=== PATIENT | female | born 1960 | race Caucasian/White ===

== ENCOUNTER 2017-05-08 12:26 | Emergency (ER) | payer BC, MEDICARE ==
[2017-05-08 12:47] VITALS: BP 141/90
--- NOTE | 2017-05-08 13:28 | UC ---
Complaint Female HPI - HPI Summary HPI Summary: PATIENT HAS ALZHEIMERS, HAS BEEN ITCHING BLADDER AREA FOR TWO WEEKS AFTER URINATION. LAST FEW DAYS HAS HAD CHANGES IN MENTATION . CONCERN FOR UTI; NO FEVER. - History Of Current Complaint Chief Complaint: UCGU Stated Complaint: POSSIBLE UTI Time Seen by Provider: 05/08/17 12:47 Hx Obtained From: Patient, Family/Waterproofer Hx From Patient Unobtainable Due To: Dementia Onset/Duration: Sudden Onset, Gradual Onset, Lasting Weeks, Still Present, Worse Since - 3 DAYS Timing: Intermittent, Lasting Weeks Severity Initially: Moderate Severity Currently: Moderate Character: Dull, Burning Aggravating Factor(s): Urination Associated Signs And Symptoms: Negative: Fever, Back Pain, Vaginal Bleeding/ Discharge, Vaginal Discharge, Nausea, Vomiting(# Of Episodes =), Genital Swelling, Genital Blisters, Retained Foregin Body (Specify) - Risk Factors Ectopic Risk Factor: Negative Ovarian Torsion Risk Factor: Negative - Allergies/Home Medications Allergies/Adverse Reactions: Allergies Allergy/AdvReac Type Severity Reaction Status Date / Time No Known Allergies Allergy Verified 05/08/17 12:47 PMH/Surg Hx/FS Hx/Imm Hx Previously Healthy: Yes - Surgical History Surgical History: Yes Surgery Procedure, Year, and Place: hernia repair - Family History Known Family History: Negative: Renal Disease - Social History Occupation: Employed Full-time Lives: With Family Alcohol Use: None Substance Use Type: None Smoking Status (MU): Former Smoker Review of Systems Constitutional: Negative Skin: Negative Eyes: Negative ENT: Negative Respiratory: Negative Cardiovascular: Negative Gastrointestinal: Negative Genitourinary: Frequency Motor: Negative Neurovascular: Negative Musculoskeletal: Negative Neurological: Negative Psychological: Negative All Other Systems Reviewed And Are Negative: Yes Physical Exam Triage Information Reviewed: Yes Completion Of Physical Exam Limited Due To: Dementia Appearance: Well-Appearing, No Pain Distress, Well-Nourished Vital Signs: Initial Vital Signs Temp 98.9 F 05/08/17 12:42 Pulse 96 05/08/17 12:42 Resp 16 05/08/17 12:42 BP 141/90 05/08/17 12:42 Pulse Ox 100 05/08/17 12:42 Vital Signs Reviewed: Yes Eye Exam: Normal ENT Exam: Normal ENT: Positive: Normal ENT inspection, Hearing grossly normal Dental Exam: Normal Neck exam: Normal Neck: Positive: Supple, Nontender, No Lymphadenopathy Respiratory Exam: Normal Respiratory: Positive: Chest non-tender, Lungs clear, Normal breath sounds, No respiratory distress, No accessory muscle use Cardiovascular Exam: Normal Cardiovascular: Positive: RRR, No Murmur, Pulses Normal, Brisk Capillary Refill Abdominal Exam: Normal Abdomen Description: Positive: Nontender, No Organomegaly Musculoskeletal Exam: Normal Neurological Exam: Normal Psychological: Positive: Normal Response To Family Skin Exam: Normal Complaint Female Dx - Differential Dx/Diagnosis Differential Diagnosis/HQI/PQRI: Urinary Tract Infection Provider Diagnoses: URINARY TRACT INFECTION Discharge - Discharge Plan Condition: Stable Disposition: HOME Prescriptions: Sulfamethox/Trimethoprim DS* [Bactrim DS 800/160 TAB*] 1 tab PO BID #14 tab Patient Education Materials: Urinary Tract Infection in Women (ED) Referrals: Cheryl Angulo MD [Primary Care Provider] -
--- NOTE | 2017-05-09 15:57 | UC ---
Progress - Progress Note Progress Note: call and besure patients sx have resolved---if symptoms continued please get rechecked
== END 2017-05-08 13:20 | disposition home or self-care (01) ==
LOC: UCEAST 12:26
DX: N39.0 Urinary tract infection, site not specified (principal); G30.9 Alzheimer's disease, unspecified; F02.80 Dementia in other diseases classified elsewhere, unspecified severity, without behavioral disturbance, psychotic disturbance, mood disturbance, and anxiety
CPT/HCPCS: 81003; 87077; 87086; 99212; G0463

== ENCOUNTER 2017-05-09 20:15 | Emergency (ER) | payer MEDICARE ==
--- NOTE | 2017-05-09 21:45 | RAD ---
INDICATION: Altered mental status, multiple falls. COMPARISON: Correlation is made with a prior outside MRI of the brain from March 29, 2013. TECHNIQUE: Contiguous axial sections of the brain were obtained from the skull base to the vertex without contrast. FINDINGS: The ventricles, cisterns and sulci are enlarged consistent with diffuse atrophy. No significant focal abnormality or mass effect is seen. There is no evidence for hemorrhage. No significant focal osseous abnormality is seen. The visualized portion of the paranasal sinuses and mastoid air cells appear clear. IMPRESSION: NO EVIDENCE FOR GROSS ACUTE INFARCT, MASS EFFECT OR HEMORRHAGE.
--- NOTE | 2017-05-09 21:49 | RAD ---
INDICATION: Trauma. COMPARISON: There are no prior studies available for comparison. TECHNIQUE: Contiguous axial sections were obtained from the skull base through the T2 vertebra. Images were reconstructed in the sagittal and coronal planes. FINDINGS: The vertebra are in normal alignment. No prevertebral soft tissue swelling or fracture is seen. At the C5-C6 level there is mild posterior uncinate process spurring. This causes mild spinal canal narrowing and mild bilateral neural foraminal narrowing. At the C6-C7 level there is mild posterior uncinate process spurring. No significant spinal canal narrowing is present. There is mild neural foraminal narrowing on the left side. IMPRESSION: 1. NO EVIDENCE FOR FRACTURE OR SUBLUXATION. 2. MILD CERVICAL SPONDYLOSIS.
[2017-05-09 21:54] LABS: Hematocrit 40 % (35-47); Hemoglobin 13.9 g/dl (12.0-16.0); Mean Corpuscular HGB Conc 35 g/dl (31-36); Mean Corpuscular Hemoglobin 32 pg (27-31); Mean Corpuscular Volume 93 fL (80-97); Mean Platelet Volume 8 um3 (7.4-10.4); Red Blood Count 4.34 10^6/ul (4.0-5.4); Red Cell Distribution Width 13 % (10.5-15); White Blood Count 8.3 10^3/ul (3.5-10.8)
--- NOTE | 2017-05-09 22:05 | ED ---
Matty Hand Nikita, scribed for Michele Rogers MD on 05/09/17 at 2115 . Altered Mental Status - HPI Summary HPI Summary: This patient is a 57 year old F BIBA from [facility] to ED for AMS s /p multiple unwitnessed falls earlier today. alf staff had to help pt walk to bed because she was leaning over more than usual. Pt is unable to follow commands and has impaired speech which is not unusual per [facility] staff. alf staff reports bruise on R side of head. Staff reports pt is not on blood thinners. PMHx of stroke w/ L Side weakness and expressive aphasia. - History Of Current Complaint Chief Complaint: EDAltMentalStatus Stated Complaint: FALL Time Seen by Provider: 05/09/17 21:09 Hx Obtained From: Family/Pitching Coach Hx From Patient Unobtainable Due To: Altered Mental Status Onset/Duration: Unknown - Multiple unwitnessed falls, Still Present Aggravating Factor(s): Nothing Associated Signs And Symptoms: Positive: Recent Trauma - multiple unwitnessed falls, leaning over more than usual, unable to follow commands, and has impaired speech which is not unusual per [facility] staff. alf staff reports bruise on R side of head. - Allergies/Home Medications Allergies/Adverse Reactions: Allergies Allergy/AdvReac Type Severity Reaction Status Date / Time No Known Allergies Allergy Verified 05/08/17 12:47 PMH/Surg Hx/FS Hx/Imm Hx Endocrine/Hematology History: Reports: Hx Thyroid Disease Cardiovascular History: Reports: Hx Hypertension - Cancer History Hx Chemotherapy: No Hx Radiation Therapy: No - Surgical History Surgery Procedure, Year, and Place: hernia repair Infectious Disease History: Yes Infectious Disease History: Denies: Hx Clostridium Difficile, Hx Hepatitis, Hx Human Immunodeficiency Virus (HIV), Hx of Known/Suspected MRSA, Hx Shingles, Hx Tuberculosis, Hx Known/ Suspected VRE, Hx Known/Suspected VRSA, History Other Infectious Disease, Traveled Outside the [place] in Last 30 Days - Family History Known Family History: Negative: Renal Disease - Social History Alcohol Use: None Substance Use Type: Reports: None Smoking Status (MU): Former Smoker Review of Systems Positive: Other - Multiple unwitnessed falls, [facility] staff reports pt was leaning over more than usual Positive: Bruising - R side of head Neurological: Other - Unable to follow commands, impaired speech which is not unusual per [facility] staff All Other Systems Reviewed And Are Negative: Yes Physical Exam Triage Information Reviewed: Yes Vital Signs On Initial Exam: Initial Vitals Temp Pulse Resp BP Pulse Ox 98.2 F 78 18 166/100 100 05/09/17 20:24 05/09/17 20:24 05/09/17 20:24 05/09/17 20:24 05/09/17 20:24 Vital Signs Reviewed: Yes Appearance: Positive: Well-Appearing, No Pain Distress Skin: Positive: Warm, Skin Color Reflects Adequate Perfusion, Dry Head/Face: Positive: Other - Small hematoma above L lateral eyebrow Eyes: Positive: Normal ENT: Positive: Normal ENT inspection Neck: Positive: Supple, Tenderness @ - Tenderness to palpation at midline of neck Respiratory/Lung Sounds: Positive: Clear to Auscultation, Breath Sounds Present Cardiovascular: Positive: RRR Abdomen Description: Positive: Nontender, Soft Bowel Sounds: Positive: Present Musculoskeletal: Positive: Normal Neurological: Positive: Normal, Sensory/Motor Intact, Alert, Oriented to Person Place, Time, CN Intact II-III Psychiatric: Positive: Affect/Mood Appropriate Diagnostics - Vital Signs Vital Signs Temp Pulse Resp BP Pulse Ox 05/09/17 20:24 98.2 F 78 18 166/100 100 - Laboratory Lab Results: Lab Results 05/09/17 Range/Units 21:40 WBC 8.3 (3.5-10.8) 10^3/ul RBC 4.34 (4.0-5.4) 10^6/ul Hgb 13.9 (12.0-16.0) g/dl Hct 40 (35-47) % MCV 93 (80-97) fL MCH 32 H (27-31) pg MCHC 35 (31-36) g/dl RDW 13 (10.5-15) % Plt Count 255 (150-450) 10^3/ul MPV 8 (7.4-10.4) um3 Neut % (Auto) 69.6 (38-83) % Lymph % (Auto) 18.3 L (25-47) % [place] % (Auto) 10.5 H (1-9) % Eos % (Auto) 1.0 (0-6) % Baso % (Auto) 0.6 (0-2) % Absolute Neuts (auto) 5.8 (1.5-7.7) 10^3/ul Absolute Lymphs (auto) 1.5 (1.0-4.8) 10^3/ul Absolute Monos (auto) 0.9 H (0-0.8) 10^3/ul Absolute Eos (auto) 0.1 (0-0.6) 10^3/ul Absolute Basos (auto) 0.1 (0-0.2) 10^3/ul Absolute Nucleated RBC 0 10^3/ul Nucleated RBC % 0 Result Diagrams: 05/09/17 21:40 Lab Statement: Any lab studies that have been ordered have been reviewed, and results considered in the medical decision making process. - CT Brain CT Interpretation Completed By: Radiologist - NO EVIDENCE FOR GROSS ACUTE INFARCT, MASS EFFECT OR HEMORRHAGE. ED physician has reviewed this radiology report and agrees. C-spine CT Interpretation Completed By: Radiologist - 1. NO EVIDENCE FOR FRACTURE OR SUBLUXATION. 2. MILD CERVICAL SPONDYLOSIS. ED physician has reviewed this radiology report and agrees. - EKG 2138 Cardiac Rate: NL - 72 BPM EKG Rhythm: Sinus Rhythm ST Segment: Non-Specific - Non-specific T wave flattening diffusely Altered Mental Statu Course/Dx - Course Course Of Treatment: Ms. Virgen has had a number of unwitnessed falls and in fact falls frequently. She was found to have fallen tonight with a bruise over her left eye. She normally lists to the left and they felt that this was more pronounced and she was less responsive. She is quite responsive here with a GCS of 15. She is getting a W/U and I suspect she will be going back to F/U with her PMD. - Diagnoses Discharge Diagnoses: Head injury Discharge - Discharge Plan Condition: Stable Disposition: OTHER Discharge Disposition Comment: change of shift The documentation as recorded by the Matty asencio Nikita accurately reflects the service I personally performed and the decisions made by me, Michele Rogers MD.
[2017-05-09 22:09] LABS: Albumin 4.4 g/dL (3.2-5.2); BUN/Creatinine Ratio 11.1 (8-20); Calcium 9.8 mg/dL (8.6-10.3); EGFR African American 61.8 (>60); Globulin 2.5 g/dL (2-4); Potassium 3.4 mmol/L (3.5-5.0); Total Bilirubin 0.6 mg/dL (0.2-1.0); Total Protein 6.9 g/dL (6.4-8.9)
[2017-05-09 22:27] VITALS: BP 120/98
[2017-05-09 22:38] LABS: Urine Bacteria Absent (Absent); Urine Bilirubin Negative (Negative); Urine Glucose Negative (Negative); Urine Nitrite Negative (Negative)
[2017-05-09 22:48] LABS: Benzodiazepine Urine Screen Presumptive Positive (None Detect)
== END 2017-05-09 23:03 ==
LOC: ED 20:15
DX: S09.90XA Unspecified injury of head, initial encounter (principal); W19.XXXA Unspecified fall, initial encounter; Y93.9 Activity, unspecified; Y92.9 Unspecified place or not applicable
CPT/HCPCS: 36415; 70450; 72125; 80053; 80307; 81003; 81015; 82140; 83605; 84484; 85025; 85610; 87086; 93005; 99282

== ENCOUNTER 2017-05-15 12:08 | Emergency (ER) | payer MEDICARE ==
[2017-05-15 12:20] VITALS: BP 127/109
[2017-05-15] MEDS ORDERED: NS 0.9% 1000 ML* 1,000 ML IV ONE (12:22)
[2017-05-15] MEDS ORDERED: ALPRAZolam TAB* 0.25 MG PO ONE (12:27)
[2017-05-15] MEDS ORDERED: Mirtazapine TAB* 15 MG PO ONE (12:27)
[2017-05-15 12:41] LABS: Urine Bilirubin Negative (Negative); Urine Glucose Negative (Negative); Urine Nitrite Negative (Negative)
[2017-05-15] MEDS ORDERED: Sulfamethox/Trimethoprim DS 800/160* TAB PO ONE (12:58)
[2017-05-15 13:00] LABS: Hematocrit 40 % (35-47); Hemoglobin 13.7 g/dl (12.0-16.0); Mean Corpuscular HGB Conc 34 g/dl (31-36); Mean Corpuscular Hemoglobin 32 pg (27-31); Mean Corpuscular Volume 94 fL (80-97); Mean Platelet Volume 8 um3 (7.4-10.4); Red Blood Count 4.23 10^6/ul (4.0-5.4); Red Cell Distribution Width 12 % (10.5-15); White Blood Count 5.4 10^3/ul (3.5-10.8)
[2017-05-15 13:15] LABS: Albumin 4.7 g/dL (3.2-5.2); BUN/Creatinine Ratio 12.7 (8-20); EGFR African American 61.2 (>60); EGFR Non-African American 47.6 (>60); Globulin 2.4 g/dL (2-4); Magnesium 2.6 mg/dL (1.9-2.7); Potassium 4.2 mmol/L (3.5-5.0); Total Bilirubin 0.5 mg/dL (0.2-1.0); Total Protein 7.1 g/dL (6.4-8.9)
[2017-05-15 14:24] LABS: TSH (Thyroid Stimulating Horm) 2.73 mcIU/mL (0.34-5.60)
--- NOTE | 2017-05-31 02:53 | ED ---
Uri Hand Thomas, scribed for Mariela Hartmann MD on 05/15/17 at 1223 . Altered Mental Status - HPI Summary HPI Summary: LEVEL 5 CAVEAT: HPI IS LIMITED BY DEMENTIA The pt is a 57 y/o F with a Hx of early-onset dementia who was BIB EMS with increased agitation and combativeness for the last week. She lives at [facility] and has expressive aphasia. Per the resident transfer form, the patient has been uncontrollably screaming, kicking, hitting herself, biting herself, and staying in a crouched position for hours for about the last week. Grecia Haywood from [facility] is in the room, and she confirms that the patient has expressive aphasia at baseline. Grecia Haywood reports that the patient is normally able to indicate pain and answer simple questions. When the patient is asked if she has any pain, she replies no. She was a patient [place] [facility] [place], where she was diagnosed with a UTI and discharged with a prescription of Bactrim, which she is still taking as directed. She is also on Xanax TID. She does not have any problems with ambulation. The patient is thin, and Grecia Haywood reports that the patient may have lost some weight recently. The patient also has ecchymosis on her left orbit that, per Grecia Haywood, stems from a fall last week. PMHx: early-onset Alzheimers, alcohol dependency, HLD, hyperthyroidism. PSHx: hernia repair. SHx: former smoker, no alcohol use, no illicit drug use. Her PCP is Dr. Cheryl Angulo. Patients medication reviewed this visit. - History Of Current Complaint Chief Complaint: EDAltMentalStatus Stated Complaint: MHE Hx Obtained From: EMS, Medical Records, Other: - Grecia Haywood from [facility] Hx From Patient Unobtainable Due To: Dementia Onset/Duration: Still Present Timing: Lasting Weeks - 1 week Severity Initially: Moderate Severity Currently: Severe Character: Agitation Aggravating Factor(s): Unknown Alleviating Factor(s): Unknown Associated Signs And Symptoms: Positive: Negative Related History: Recent Illness - She was a patient [place] [facility] [place] and treated for a UTI - Allergies/Home Medications Allergies/Adverse Reactions: Allergies Allergy/AdvReac Type Severity Reaction Status Date / Time No Known Allergies Allergy Verified 05/08/17 12:47 PMH/Surg Hx/FS Hx/Imm Hx Previously Healthy: No - LEVEL 5 CAVEAT: PMH IS LIMITED BY DEMENTIA Endocrine/Hematology History: Reports: Hx Thyroid Disease Cardiovascular History: Reports: Hx Hypertension Neurological History: Reports: Hx Dementia - Cancer History Hx Chemotherapy: No Hx Radiation Therapy: No - Surgical History Surgery Procedure, Year, and Place: hernia repair Infectious Disease History: Denies: Hx Clostridium Difficile, Hx Hepatitis, Hx Human Immunodeficiency Virus (HIV), Hx of Known/Suspected MRSA, Hx Shingles, Hx Tuberculosis, Hx Known/ Suspected VRE, Hx Known/Suspected VRSA, History Other Infectious Disease - Family History Known Family History: Negative: Renal Disease - Social History Lives: At [facility] - memory care unit at [facility] Alcohol Use: None Substance Use Type: Reports: None Smoking Status (MU): Former Smoker Review of Systems - ROS Summary Review of Systems Summary: LEVEL 5 CAVEAT: ROS IS LIMITED BY DEMENTIA Negative: Fever Positive: Bruising - on left orbit Neurological: Other - POS: agitation for the last week (per resident transfer from [facility]) All Other Systems Reviewed And Are Negative: No Physical Exam - Summary Physical Exam Summary: LEVEL 5 CAVEAT: PHYSICAL EXAM IS LIMITED BY DEMENTIA Triage Information Reviewed: Yes Vital Signs On Initial Exam: Temp 99.2, HR 67, RR 20, BP 127/109, SaO2 98. Vital Signs Reviewed: Yes Appearance: Positive: No Pain Distress, Well-Nourished, Thin, Signs of Trauma - bruise left orbit Skin: Positive: Warm, Skin Color Reflects Adequate Perfusion, Other - There is ecchymosis on the left orbit. It is purple, yellow, and green. Head/Face: Positive: Normal Head/Face Inspection Eyes: Positive: EOMI, ROM, Conjunctiva Clear ENT: Positive: Normal ENT inspection Neck: Positive: Supple, Nontender, No Lymphadenopathy Respiratory/Lung Sounds: Positive: Clear to Auscultation, Breath Sounds Present , Other - No respiratory distress Cardiovascular: Positive: RRR, Pulses are Symmetrical in both Upper and Lower Extremities, Other - Brisk cap refill. Negative: Murmur Abdomen Description: Positive: Nontender, No Organomegaly, Soft Bowel Sounds: Positive: Present Musculoskeletal: Positive: Strength/ROM Intact, Other - There is no facial bony tenderness. Neurological: Positive: Sensory/Motor Intact, Expressive Aphasia - not new, Facial Symmetry Psychiatric: Positive: Other - Per Grecia Haywood, her affect and mood are baseline. Diagnostics - Vital Signs Temp 99.2, HR 67, RR 20, BP 127/109, SaO2 98. - Laboratory Lab Results: Lab Results 05/15/17 05/15/17 05/15/17 Range/Units 12:30 12:48 12:48 WBC 5.4 (3.5-10.8) 10^3/ul RBC 4.23 (4.0-5.4) 10^6/ul Hgb 13.7 (12.0-16.0) g/dl Hct 40 (35-47) % MCV 94 (80-97) fL MCH 32 H (27-31) pg MCHC 34 (31-36) g/dl RDW 12 (10.5-15) % Plt Count 275 (150-450) 10^3/ul MPV 8 (7.4-10.4) um3 Neut % (Auto) 70.9 (38-83) % Lymph % (Auto) 17.6 L (25-47) % [place] % (Auto) 8.6 (1-9) % Eos % (Auto) 1.6 (0-6) % Baso % (Auto) 1.3 (0-2) % Absolute Neuts (auto) 3.8 (1.5-7.7) 10^3/ul Absolute Lymphs (auto) 0.9 L (1.0-4.8) 10^3/ul Absolute Monos (auto) 0.5 (0-0.8) 10^3/ul Absolute Eos (auto) 0.1 (0-0.6) 10^3/ul Absolute Basos (auto) 0.1 (0-0.2) 10^3/ul Absolute Nucleated RBC 0 10^3/ul Nucleated RBC % 0 Sodium 136 (133-145) mmol/L Potassium 4.2 (3.5-5.0) mmol/L Chloride 102 (101-111) mmol/L Carbon Dioxide 29 (22-32) mmol/L Anion Gap 5 (2-11) mmol/L BUN 15 (6-24) mg/dL Creatinine 1.18 H (0.51-0.95) mg/dL Est GFR ( Amer) 61.2 (>60) Est GFR (Non-Af Amer) 47.6 (>60) BUN/Creatinine Ratio 12.7 (8-20) Glucose 89 (70-100) mg/dL Lactic Acid (0.5-2.0) mmol/L Calcium 10.0 (8.6-10.3) mg/dL Magnesium 2.6 (1.9-2.7) mg/dL Total Bilirubin 0.50 (0.2-1.0) mg/dL AST 25 (13-39) U/L ALT 36 (7-52) U/L Alkaline Phosphatase 71 (34-104) U/L Troponin I 0.00 (<0.04) ng/mL Total Protein 7.1 (6.4-8.9) g/dL Albumin 4.7 (3.2-5.2) g/dL Globulin 2.4 (2-4) g/dL Albumin/Globulin Ratio 2.0 (1-3) TSH 2.73 (0.34-5.60) mcIU/mL Urine Color Yellow Urine Appearance Clear Urine pH 5.0 (5-9) Ur Specific [place] 1.023 (1.010-1.030) Urine Protein Negative (Negative) Urine Ketones Negative (Negative) Urine Blood Negative (Negative) Urine Nitrate Negative (Negative) Urine Bilirubin Negative (Negative) Urine Urobilinogen Negative (Negative) Ur Leukocyte Esterase Negative (Negative) Urine Glucose Negative (Negative) 05/15/17 Range/Units 12:48 WBC (3.5-10.8) 10^3/ul RBC (4.0-5.4) 10^6/ul Hgb (12.0-16.0) g/dl Hct (35-47) % MCV (80-97) fL MCH (27-31) pg MCHC (31-36) g/dl RDW (10.5-15) % Plt Count (150-450) 10^3/ul MPV (7.4-10.4) um3 Neut % (Auto) (38-83) % Lymph % (Auto) (25-47) % [place] % (Auto) (1-9) % Eos % (Auto) (0-6) % Baso % (Auto) (0-2) % Absolute Neuts (auto) (1.5-7.7) 10^3/ul Absolute Lymphs (auto) (1.0-4.8) 10^3/ul Absolute Monos (auto) (0-0.8) 10^3/ul Absolute Eos (auto) (0-0.6) 10^3/ul Absolute Basos (auto) (0-0.2) 10^3/ul Absolute Nucleated RBC 10^3/ul Nucleated RBC % Sodium (133-145) mmol/L Potassium (3.5-5.0) mmol/L Chloride (101-111) mmol/L Carbon Dioxide (22-32) mmol/L Anion Gap (2-11) mmol/L BUN (6-24) mg/dL Creatinine (0.51-0.95) mg/dL Est GFR ( Amer) (>60) Est GFR (Non-Af Amer) (>60) BUN/Creatinine Ratio (8-20) Glucose (70-100) mg/dL Lactic Acid 0.8 (0.5-2.0) mmol/L Calcium (8.6-10.3) mg/dL Magnesium (1.9-2.7) mg/dL Total Bilirubin (0.2-1.0) mg/dL AST (13-39) U/L ALT (7-52) U/L Alkaline Phosphatase (34-104) U/L Troponin I (<0.04) ng/mL Total Protein (6.4-8.9) g/dL Albumin (3.2-5.2) g/dL Globulin (2-4) g/dL Albumin/Globulin Ratio (1-3) TSH (0.34-5.60) mcIU/mL Urine Color Urine Appearance Urine pH (5-9) Ur Specific [place] (1.010-1.030) Urine Protein (Negative) Urine Ketones (Negative) Urine Blood (Negative) Urine Nitrate (Negative) Urine Bilirubin (Negative) Urine Urobilinogen (Negative) Ur Leukocyte Esterase (Negative) Urine Glucose (Negative) Result Diagrams: 05/15/17 12:48 05/15/17 12:48 Lab Statement: Any lab studies that have been ordered have been reviewed, and results considered in the medical decision making process. - EKG 12:34 Cardiac Rate: NL - sinus rhythm at 65 BPM. Nml AV/IV/QTc/[place]. Single PVC. No acute changes. Compared to 05/09/17, there are no changes. Re-Evaluation - Re-Evaluation First Eval Re-Evaluation Time: 12:58 Change: Unchanged Comment: I re-evaluated the patient's facial bruising. There was no bony tenderness, EOM intact, and the bruising was yellow/purple/green. Determined that this is old bruising without evidence of impairment from the injury, so no need for imaging at this time. Second Eval Re-Evaluation Time: 13:51 Change: Unchanged Comment: The patient's daughter is the in the room. We went over the patient's labs. We told her that, at this time, admission to [facility] would be a social admission and not a medical admission. We also talked about the possibility of a need of increase the patient's level of care in the future. Altered Mental Statu Course/Dx - Course Assessment/Plan: The patient is a 57 y/o F with a Hx of early onset dementia with increased agitation for the last week. She was a patient [place] [facility] [place], when she was diagnosed with a UTI and was prescribed Bactrim. The patient was given Xanax, IV Fluids, remeron and Bactrim in the ED. Bloodwork was obtained, which shows creatine 1.18. UA was negative. EKG at 12:34 shows sinus rhythm at 65 BPM. Nml AV/IV/QTc/[place]. Single PVC. No acute changes. Compared to 05/09/17, there are no changes. She is diagnosed with dementia, combative behavior, and resolving UTI. She will be discharged to [facility]. - Diagnoses Discharge Diagnoses: Dementia, Combative behavior, UTI (urinary tract infection) Discharge - Discharge Plan Condition: Stable Disposition: HOME Prescriptions: ALPRAZolam TAB* [Xanax TAB*] 0.25 mg PO TID PRN #30 tab MDD 6 PRN Reason: Agitation Patient Education Materials: Dementia (ED), Urinary Tract Infection in Women ( ED) Referrals: Cheryl Angulo MD [Primary Care Provider] - 3 Days Additional Instructions: Ms Virgen was given Bactrim DS, mirtazapine 30mg, xanax 0.25mg and one liter of normal saline IV. A catheterized urine was negative for UTI. Her labs were unremarkable. She remained calm and cooperative throughout her ED visit. Discussed with Telma and Grecia prior to discharge. Plan is to add xanax 0.25mg tid PRN agitation in addition to her around the clock administered xanax 0.25mg tid. This will be reviewed on 05.19.17 at her med review visit, per Telma. Return to the ER if any new or worsening symptoms. The documentation as recorded by the Uri asencio Thomas accurately reflects the service I personally performed and the decisions made by Shahbaz wood Barbara J, MD.
== END 2017-05-15 14:58 | disposition home or self-care (01) ==
LOC: ED 12:08
DX: F91.9 Conduct disorder, unspecified (principal); F03.90 Unspecified dementia, unspecified severity, without behavioral disturbance, psychotic disturbance, mood disturbance, and anxiety; N39.0 Urinary tract infection, site not specified
CPT/HCPCS: 36415; 80053; 81003; 83605; 83735; 84443; 84484; 85025; 93005; 99283; A9270-GY

== ENCOUNTER 2017-06-21 16:05 | Emergency (ER) | payer MEDICARE ==
[2017-06-21 16:20] VITALS: BP 134/74
--- NOTE | 2017-06-21 17:13 | UC ---
Skin Complaint HPI - HPI Summary HPI Summary: Patient presents with her daughter who is the primary historian. She states her mother lives at [facility], and they reported that she developed a rash on the folds of her groin. The patient is unable to offer any insight as to the reason she was sent here tonight. The daughter states the patient is at baseline and does not note any signs of distress. She notes that the patient has stated that the rash itches. - History of Current Complaint Hx Obtained From: Family/[employer] Associate Onset/Duration: Sudden Onset Onset Severity: Mild Current Severity: Mild Location: Discrete - rash in groin folds Aggravating Factor(s): Nothing, Other - patient cannot state Alleviating Factor(s): Nothing, Other - patient cannot state Associated Signs & Symptoms: Positive: Rash <Mercy Latham - Last Filed: 06/21/17 17:08> <Sherry Rubin - Last Filed: 06/21/17 19:29> - History of Current Complaint Chief Complaint: UCGU Time Seen by Provider: 06/21/17 16:51 Stated Complaint: PERSONAL - Allergy/Home Medications Allergies/Adverse Reactions: Allergies Allergy/AdvReac Type Severity Reaction Status Date / Time No Known Allergies Allergy Verified 06/21/17 16:21 Review of Systems Constitutional: Negative Skin: Rash Eyes: Negative ENT: Negative Respiratory: Negative Cardiovascular: Negative Gastrointestinal: Negative Genitourinary: Negative Motor: Negative Neurovascular: Negative Musculoskeletal: Negative Neurological: Negative Psychological: Negative All Other Systems Reviewed And Are Negative: Yes <Mercy Latham - Last Filed: 06/21/17 17:08> PMH/Surg Hx/FS Hx/Imm Hx Previously Healthy: Yes Neurological History: Dementia - Surgical History Surgical History: Yes Surgery Procedure, Year, and Place: hernia repair - Family History Known Family History: Negative: Renal Disease - Social History Occupation: Disabled Lives: Assisted Living Alcohol Use: None Substance Use Type: None Smoking Status (MU): Former Smoker <Mercy Latham - Last Filed: 06/21/17 17:08> Physical Exam Triage Information Reviewed: Yes Completion Of Physical Exam Limited Due To: Dementia Appearance: Well-Appearing Vital Signs: Initial Vital Signs Temp 98.0 F 06/21/17 16:14 Pulse 64 06/21/17 16:14 Resp 12 10/16/17 16:14 BP 134/74 06/21/17 16:14 Pulse Ox 99 06/21/17 16:14 Vital Signs Reviewed: Yes Eye Exam: Normal ENT Exam: Normal Dental Exam: Normal Neck exam: Normal Neck: Positive: 1 Respiratory Exam: Normal Cardiovascular Exam: Normal Abdominal Exam: Normal Musculoskeletal Exam: Normal Neurological Exam: Normal Psychological Exam: Normal Skin: Positive: rashes - groin; bilateral will defined small red rasided areas surrounding the base of hairs. right side has 5, left side has four. <Mercy Latham - Last Filed: 06/21/17 17:08> Vital Signs: Initial Vital Signs Temp 98.0 F 06/21/17 16:14 Pulse 64 06/21/17 16:14 Resp 12 06/21/17 16:14 BP 134/74 06/21/17 16:14 Pulse Ox 99 06/21/17 16:14 <Sherry Rubin - Last Filed: 06/21/17 19:29> Course/Dx - Course Course Of Treatment: Patient has approximatly nine areas of superficial folliculitis of her groin. I recommend topical benoyl peroxide bid x five days. She had a nontoxic appearance, normal vital signs and discharged home in stable condition. - Differential Diagnoses - Skin Complaint Differential Diagnoses: Other - folliculitis - Diagnoses Provider Diagnoses: folliculitis <Mercy Latham - Last Filed: 06/21/17 17:08> Discharge <Mercy Latham - Last Filed: 06/21/17 17:08> <Sherry Rubin - Last Filed: 06/21/17 19:29> - Discharge Plan Condition: Stable Disposition: HOME Prescriptions: Benzoyl Peroxide [Benzoyl Peroxide Wash] 5 % EX BID #1 liq Patient Education Materials: Folliculitis (ED) Referrals: Cheryl Angulo MD [Primary Care Provider] - Attestation Statement User Type: Provider - I was available for consult. This patient was seen by the KLAUDIA. The patient was not presented to, seen by, or examined by me. -Ljj <Sherry Rubin - Last Filed: 06/21/17 19:29>
== END 2017-06-21 17:14 | disposition home or self-care (01) ==
LOC: UCEAST 16:05
DX: L73.9 Follicular disorder, unspecified (principal); F03.90 Unspecified dementia, unspecified severity, without behavioral disturbance, psychotic disturbance, mood disturbance, and anxiety; Z87.891 Personal history of nicotine dependence
CPT/HCPCS: 81003; 87086; 99212; G0463

== ENCOUNTER 2018-01-26 14:06 | Emergency (ER) | payer MEDICARE ==
[2018-01-26 14:22] VITALS: BP 115/78
[2018-01-26] MEDS ORDERED: NS 0.9% 1000 ML* 1,000 ML IV ONE (14:51)
--- NOTE | 2018-01-26 15:57 | RAD ---
Indication: Leaning toward the LEFT for 1.5 weeks. Comparison: May 09, 2017 Technique: Noncontrast CT vertex of skull through foramen magnum. Report: Severe prominence of the cerebral sulci and moderate prominence of the cerebellar fissures reflecting atrophy. Proportional mild enlargement of the ventricles. Patent basal cisterns. Negative for duran matter white matter obscuration, intra or extra-axial hemorrhage, or mass effect. Unremarkable orbital contents. Negative for suspicious calvarial or skull base lesions. Clear paranasal sinuses and mastoid air spaces. Unremarkable scalp. IMPRESSION: Advanced involutional change. No acute intracranial process evident.
--- NOTE | 2018-01-26 15:59 | RAD ---
Indication: Confusion. Unknown last bowel movement. Comparison: No relevant prior exams available on the [facility] for comparison. Technique: Supine view of the abdomen. Report: Unremarkable bowel gas pattern. Moderately large volume of stool in the colon without significant rectal distension. Negative for suspicious calcifications. Unremarkable soft tissue contours. IMPRESSION: Moderately large volume of stool in the colon without significant rectal distension. No evidence for bowel obstruction.
[2018-01-26 18:52] LABS: ABS Basophils 0 10^3/ul (0-0.2); ABS Eosinophils 0.1 10^3/ul (0-0.6); ABS Lymphocytes 1.3 10^3/ul (1.0-4.8); ABS Monocytes 0.5 10^3/ul (0-0.8); ABS Neutrophils 4.5 10^3/ul (1.5-7.7); ABS Nucleated RBC 0 10^3/ul; Eosinophil % 1.7 % (0-6); Hematocrit 38 % (35-47); Hemoglobin 13.2 g/dl (12.0-16.0); Lymphocyte % 20.4 % (25-47); Mean Corpuscular HGB Conc 35 g/dl (31-36); Mean Corpuscular Hemoglobin 33 pg (27-31); Mean Corpuscular Volume 95 fL (80-97); Mean Platelet Volume 8.2 um3 (7.4-10.4); Nucleated Red Blood Cells % 0.1; Platelet Count 247 10^3/ul (150-450); Red Cell Distribution Width 13 % (10.5-15); White Blood Count 6.4 10^3/ul (3.5-10.8)
[2018-01-26 19:03] LABS: INR 0.86 (0.77-1.02)
[2018-01-26 19:27] LABS: EGFR Non-African American 67.6 (>60)
--- NOTE | 2018-01-26 20:07 | UC ---
Wayne Hand Tenzin, scribed for Gm Robles MD on 01/26/18 at 1451 . Hypertension HPI - HPI Summary HPI Summary: Pt is a 57 years old female brought to by her daughter after the staff at [facility] noticed elevated blood pressure this morning. Pt's BP at [facility] was 155/105 per nurse's triage, BP 115/78 at [facility]. Daughter also noted [facility]'s concern over "leaning to the left" which daughter reports has been present for about 1 year, worse in the last 2 weeks. Pt's daughter also reported that the staff at [facility] are concerned that the pt is dehydrated and constipated. PMHX early onset dementia - difficulty forming sentences. - History of Current Complaint Chief Complaint: UCAlteredMentalStatus Stated Complaint: BP UP LEANING WHEN WALKING Time Seen by Provider: 01/26/18 14:33 Hx Obtained From: Family/[employer] - Daughter Hx From Patient Unobtainable Due To: Dementia - Hx obtained from her daughter. Onset/Duration: Still Present, Other - BP - this morning; leaning - 1 year, worse since 2 weeks ago Reported Blood Pressure Prior To Arrival:: 155/105 Aggravating Factor(s): Nothing Alleviating Factor(s): Nothing - Allergies/Home Medications Allergies/Adverse Reactions: Allergies Allergy/AdvReac Type Severity Reaction Status Date / Time No Known Allergies Allergy Verified 01/26/18 14:21 Home Medications: Home Medications ALPRAZolam TAB* [Xanax TAB*] 1 mg PO TID PRN MDD 6 01/26/18 [History Confirmed 01/26/18] ALPRAZolam TAB* [Xanax TAB*] 1 tab PO Q3HR 01/26/18 [History Confirmed 01/26/18] Acetaminophen TAB* [Tylenol TAB*] 1,000 mg PO Q8HR 01/26/18 [History Confirmed 01/26/18] QUEtiapine TAB* [Seroquel 25 MG TAB*] 1 tab PO DAILY 01/26/18 [History Confirmed 01/26/18] levETIRAcetam [Keppra 250] 1 tab PO BID 01/26/18 [History Confirmed 01/26/18] PMH/Surg Hx/FS Hx/Imm Hx Endocrine History: Thyroid Disease Cardiovascular History: Hypertension Neurological History: Dementia - Early onset - Surgical History Surgical History: Yes Surgery Procedure, Year, and Place: hernia repair - Family History Known Family History: Negative: Renal Disease - Social History Alcohol Use: None Substance Use Type: None Smoking Status (MU): Former Smoker Review of Systems Constitutional: Other - Elevated blood pressure, concern of dehydration Skin: Negative Eyes: Negative ENT: Negative Respiratory: Negative Cardiovascular: Negative Gastrointestinal: Other - Concern of constipation Genitourinary: Negative Motor: Negative Neurovascular: Negative Musculoskeletal: Negative Neurological: Other - Leaning to the left Psychological: Negative All Other Systems Reviewed And Are Negative: Yes Physical Exam - Summary Physical Exam Summary: General: she is well-appearing, no pain distress. She can say words but no sentences. Skin: warm, color reflects adequate perfusion, dry Head: normal Eyes: EOMI, ROM ENT: normal Neck: supple, nontender Respiratory: CTA, breath sounds present Cardiovascular: RRR Abdomen: soft, nontender Bowel: present Musculoskeletal: normal, strength/ROM intact Neurological: sensory/motor intact, A&O x3. She has difficulty following commands. Psychological: affect/mood appropriate GCS: Triage Information Reviewed: Yes Vital Signs: Initial Vital Signs Temp 99.6 F 01/26/18 14:13 Pulse 71 01/26/18 14:13 Resp 16 01/26/18 14:13 BP 115/78 01/26/18 14:13 Pulse Ox 99 01/26/18 14:13 Vital Signs Reviewed: Yes Diagnostics - Radiology CT Head Xray Interpretation: No Acute Changes - IMPRESSION: Advanced involutional change. No acute intracranial process evident. Dr. Robles reviewed the report. Radiology Interpretation Completed By: Radiologist Abd XR Xray Interpretation: No Acute Changes - IMPRESSION: Moderately large volume of stool in the colon without significant rectal distension. No evidence for bowel obstruction. Dr. Robles reviewed the report. Radiology Interpretation Completed By: Radiologist - EKG Cardiac Rate: NL - 69 BPM Cardiac Rhythm: Sinus: Normal Ectopy: None ST Segment: Normal Re-Evaluation - Re-Evaluation First Eval Re-Evaluation Time: 16:29 Change: Unchanged Comment: pt decline IV fluids and she was drinking plenty of water. Hypertension Course/Dx - Course Course Of Treatment: DISCUSSED THE EVALUATION WITH THE DAUGHTER. THE LEANING TO THE LEFT AND WALKING OFF BALANCE HAS BEEN GOING ON FOR MONTHS. IT IS WORSE THE LAST WEEK AND 1/2 AND TODAY. WE DISCUSSED THE DDX TO INCLUDE STROKE. THERE WAS NO ACUTE CHANGE TO INDICATE ACUTE STROKE. WE DISCUSSED EVALUATION HERE IN THE CLINIC VERSES GOING TO THE ED. THE DAUGHTER FELT COMFORTABLE WITH EVALUATION HER IN THE CLINIC. THE PATIENT WILL F/U WITH HER PMD. I RECOMMENDED CALLING THE PMD TOMORROW. DISCUSSED GOING TO THE ED WITH ANY WORSENING OF SX. - Differential Dx/Diagnosis Provider Diagnoses: DEMENTIA. CONSTIPATION. HYPERTENSION. HYPOTYHROID Discharge - Sign-Out/Discharge Documenting (check all that apply): Discharge/Admit/Transfer - Discharge - Discharge Plan Condition: Stable Disposition: HOME Patient Education Materials: Constipation (ED), High Fiber Diet (ED), Dementia (ED), Hypertension (ED) Referrals: Cheryl Angulo MD [Primary Care Provider] - Additional Instructions: FOLLOW UP WITH YOUR PRIMARY CARE DOCTOR FOR THE CONSTIPATION AND HYPERTENSION. FOLLOW UP WITH YOUR NEUROLOGIST FOR THE LEANING/BALANCE ISSUE. TRY MIRALAX AND PLENTY OF FLUIDS FOR THE CONSTIPATION. GO TO THE EMERGENCY DEPARTMENT FOR ANY WORSENING OF YOUR CONDITION OR QUESTIONS OR CONCERNS. - Billing Disposition and Condition Condition: STABLE Disposition: HOME The documentation as recorded by the Wayne asencio Tenzin accurately reflects the service I personally performed and the decisions made by me, Gm Robles MD.
--- NOTE | 2018-01-27 13:33 | UC ---
- Progress Note Progress Note: 01/27/2018 Pt's TSH: 6.73 elevated. Pt w/ PMHX of Hypothyrodism on 50mcg of Syntroid PO. Please call Pt and left her know of lab result and advised to f/u w/ her PCP for adjustment on medication.\ Glucose boder line:101 mg/dl, Pt was not fasting. Dominique Kelly PA-C Re-Evaluation - Re-Evaluation First Eval Re-Evaluation Time: 16:29 Change: Unchanged Comment: pt decline IV fluids and she was drinking plenty of water. Discharge - Sign-Out/Discharge Documenting (check all that apply): Discharge/Admit/Transfer - D/C home - Discharge Plan Condition: Stable Disposition: HOME Patient Education Materials: Constipation (ED), High Fiber Diet (ED), Dementia (ED), Hypertension (ED) Referrals: Cheryl Angulo MD [Primary Care Provider] - Additional Instructions: FOLLOW UP WITH YOUR PRIMARY CARE DOCTOR FOR THE CONSTIPATION AND HYPERTENSION. FOLLOW UP WITH YOUR NEUROLOGIST FOR THE LEANING/BALANCE ISSUE. TRY MIRALAX AND PLENTY OF FLUIDS FOR THE CONSTIPATION. GO TO THE EMERGENCY DEPARTMENT FOR ANY WORSENING OF YOUR CONDITION OR QUESTIONS OR CONCERNS. - Billing Disposition and Condition Condition: STABLE Disposition: HOME
== END 2018-01-26 16:54 | disposition home or self-care (01) ==
LOC: UCEAST 14:06
DX: I10 Essential (primary) hypertension (principal); K59.00 Constipation, unspecified; E03.9 Hypothyroidism, unspecified; F03.90 Unspecified dementia, unspecified severity, without behavioral disturbance, psychotic disturbance, mood disturbance, and anxiety; Z87.891 Personal history of nicotine dependence
CPT/HCPCS: 36415; 70450; 74018; 80053; 81003; 83690; 84443; 85025; 85610; 86140; 87086; 93005; 99212; G0463